=== PATIENT | female | born 1965 | race Caucasian/White ===

== ENCOUNTER 2016-10-14 14:13 | Emergency (ER) | payer MEDICAID, OTHER ==
[~2016-10-14] VITALS: Ht 157.5 cm; Wt 133.2 kg
[~2016-10-14 14:13] MED LIST: FERR-89 PO
[2016-10-14 17:56] VITALS: BP 130/79
[2016-10-14] MEDS ORDERED: TraMADol HCL 50 MG TABLET PO ONE (18:00)
== END 2016-10-14 18:14 | disposition home or self-care (01) ==
LOC: EMS 14:15
DX: H60.93 Unspecified otitis externa, bilateral (principal); R05 Cough; R50.9 Fever, unspecified; J02.9 Acute pharyngitis, unspecified; E11.9 Type 2 diabetes mellitus without complications; Z98.84 Bariatric surgery status; E66.01 Morbid (severe) obesity due to excess calories; Z90.49 Acquired absence of other specified parts of digestive tract; F17.210 Nicotine dependence, cigarettes, uncomplicated
CPT/HCPCS: 99283